=== PATIENT | male | born 1980 | race Caucasian/White ===

== ENCOUNTER → 2021-05-20 09:14 | Outpatient (CLI) | payer BC, SELFPAY ==
[2021-05-20 18:49] LABS: Add Manual Diff / Slide Review NO; Basophils Absolute Auto 0 /uL (0-100); Basophils Percent Auto 0.6 % (0-2); Eosinophils Absolute Auto 300 /uL (0-450); Hematocrit 42.2 % (41-53); Hemoglobin 14.4 g/dL (13.5-17.5); Lymphocytes Absolute Auto 1600 /uL (1100-4500); Lymphocytes Percent Auto 32.5 % (25-40); Mean Corpuscular HGB Conc 34.2 % (30-36); Mean Corpuscular Hemoglobin 30.9 PG (26-34); Mean Corpuscular Volume 90.4 fL (80-100); Monocytes Absolute Auto 500 /uL (0-900); Monocytes Percent Auto 9.5 % (3-14); Neutrophils Absolute Auto 2500 /uL (1500-7000); Neutrophils Percent Auto 51.4 % (50-75); Platelet Count 215 X10^3/uL (150-400); Red Blood Cell Count 4.66 X10^6/uL (4.5-5.9); Red Cell Distribution Width 13.4 % (11.6-14.8); White Blood Cell Count 4.9 X10^3/uL (4.5-11.0)
[2021-05-20 18:50] LABS: Alanine Aminotransferase 22 IU/L (<50); Albumin Globulin Ratio 1.6 (1.0-2.8); Alkaline Phosphatase 59 U/L (38-126); Aspartate Aminotransferase 32 IU/L (17-59); BUN Creatinine Ratio 17.6 (6-22); Bilirubin Total 0.6 mg/dL (0.2-1.3); Blood Urea Nitrogen 16 mg/dL (9-20); Carbon Dioxide 30 mmol/L (22-32); Chloride 104 mmol/L (98-107); Cholesterol 190 mg/dL (140-199); Estimated Glomerular Filt Rate > 60.0 mL/min (>60); Globulin 2.5 g/dL (1.7-4.1); Glucose 102 mg/dL (70-100); HDL Cholesterol 70 mg/dL (40-60); HEMOLYSIS < 15 (0-50); LDL Cholesterol Calculated 103 mg/dL (<100); Potassium 4.4 mmol/L (3.4-5.1); Sodium 139 mmol/L (137-145); Total Protein 6.5 g/dL (6.3-8.2); Triglycerides 86 mg/dL (35-150)
== END ==
PROVIDERS: PCP Family Medicine; Visit Provider Family Medicine
DX: Z00.00 Encounter for general adult medical examination without abnormal findings (principal); B35.9 Dermatophytosis, unspecified
CPT/HCPCS: 80053; 80061; 85025

== ENCOUNTER 2024-02-17 11:31 | Emergency (ER) | payer BC, SELFPAY ==
[2024-02-17 11:35] VITALS: BP 122/79; PULSE 70; RESP 15; TEMP 36.9; O2SAT 99; BMI 28.0
[2024-02-17 11:36] VITALS: PULSE 65; RESP 19; O2SAT 98
[2024-02-17 11:37] VITALS: BP 122/79; PULSE 64; RESP 19; O2SAT 98
--- NOTE | 2024-02-17 11:38 | ED.GENADULT ---
HPI - General Adult General Chief complaint: Chest Pain Stated complaint: chest pain, [facility] Time Seen by Provider: 02/17/24 11:38 History of Present Illness HPI narrative: 43-year-old gentleman, otherwise healthy, presents from [facility] complaining of the week of increasing chest pain over the central portion of his chest, worse with movement and deep breathing. He notes that he has been around a person that had significant upper respiratory infection that he himself has not felt ill. He notes he has had some low-grade temperatures over the last week. No cough. He notes that he has changes workout routine from going from the gym to doing yoga at home with some advanced postures that have him doing shoulder stands. He notes that he has not having any pain or problems during the exercise itself. He has not having orthopnea, abdominal pain, nausea, vomiting, diarrhea. He has never had similar findings and he does not have a history of cardiac disease Related Data Home Medications Medication Instructions Recorded Confirmed betamethasone valerate 0.1 % 1 applic topical BID PRN 03/26/21 03/26/21 topical cream Previous Rx's Medication Instructions Recorded ketoconazole 2 % topical cream 1 applic topical BID #15 grams 11/25/21 Allergies Allergy/AdvReac Type Severity Reaction Status Date / Time No Known Drug Allergies Allergy Verified 02/17/24 11:45 Review of Systems Review of Systems Narrative: Pertinent positive and negative findings as per HPI Patient History Medical History (Updated 02/17/24 @ 12:34 by Sweta Paredes MD) Skin rash (~2002) MRSA (methicillin resistant Staphylococcus aureus) (~2012) Tinea Well adult exam Family history of heart disease Family history of premature coronary heart disease Surgical History (Updated 05/28/21 @ 20:43 by Diana Miller) Anesthesia History of vascular surgery (~1995) S/P vasectomy Family History (Updated 05/28/21 @ 20:45 by Diana Miller) Father History of heart disease Grandmother History of heart disease Stroke Grandfather History of heart disease Stroke Social History Smoking Status: Never smoker Smoking Status: Never smoker Exam Initial Vital Signs Initial Vital Signs: General: Healthy appearing, in no acute distress. Able to give a complete and coherent history. Well-nourished well-developed HEENT: Moist mucous membranes, normal sclera with reactive pupils, Neck: No JVD, Respiratory: Lungs are clear to auscultation, no wheezing no rales no rhonchi. Full and symmetrical air movement. He does not have reproducible costochondral tenderness or pain reproduced with compression of the ribcage Cardiac: Regular rate and rhythm no murmurs no bruits Abdomen: Soft, nontender, good bowel tones, no flank pain Skin: Warm and dry, no rashes Neurologic: Grossly neurologically intact with no obvious asymmetries or abnormalities Extremities: No trauma, well perfused Psych: Cooperative, appropriate insight and affect Medical Decision Making MDM Narrative Medical decision making narrative: CC: A week of chest pain worse with deep breathing and movement Complicating co-morbidities: None Data collected from: patient Social determinants of health that may influence the patients condition: Patient lives on [facility] Differential considered: Acute coronary syndrome, STEMI, pleurisy, costochondritis, perichondritis, myocarditis, musculoskeletal pain Exam documented above, pertinent findings include: Patient is healthy appearing has no reproducible pain and exam is entirely benign otherwise Lab Test results independently reviewed as above. Pertinent findings: CBC is reassuring Chemistries are unremarkable Troponin is undetectable with a week of ongoing pain Lipase is unremarkable Independently reviewed EKG: EKG is notable for sinus rhythm at a rate of 65 with no acute ischemic changes Imaging studies independently reviewed: Chest x-ray shows no acute abnormalities Treatments: IV Toradol Discussion: 43-year-old gentleman presents with a week of chest pain worse with deep breathing and movement. No evidence of life-threatening abnormalities such as pneumonia, pericarditis, myocarditis, acute coronary syndrome, pneumothorax or other life-threatening abnormality. I suspect that this is inflammatory pain and whether that is inflammation in muscles, costochondritis or pleurisy is hard to tell. Fortunately treatment for all as the same. He did respond nicely to Toradol. At this point there was no indication for additional blood work, imaging or hospitalization. He is safe for discharge Discharge Plan Departure Patient Disposition: Home Clinical Impression: Acute costochondritis Instructions: DI for Costochondritis, DI for Pleurisy Activity Restrictions/Additional Instructions: Thank you for coming in today Your workup is very reassuring. I found no life-threatening abnormalities such as heart attack or heart attack like syndrome. Pneumonia, infection, collapsed lung. I suspect that your pain is from an inflammatory process and whether that is inflammation of the costochondral margins which would be costochondritis or around the lining of your lungs which would be pleurisy the treatment is still going to be the same. Using 400 mg of ibuprofen (2 jfsa-nom-thpiees pills) and 1 Tylenol every 6 hours can be very helpful in controlling pain. If you find that you are getting worse or develop any new symptoms, please feel free to return to the emergency department for further evaluation. Prescriptions: No Action ketoconazole 2 % cream 1 applic topical BID Qty: 15 0RF betamethasone valerate 0.1 % cream 1 applic topical BID PRN Rx Instructions: apply topically 2 times daily as needed for Itching/Pruritus or Rash. Referrals: Nacho Chavarria, [Primary Care Provider] - Stand Alone Forms: Patient Portal/API
--- NOTE | 2024-02-17 11:41 | DI.RAD.S_ITS ---
PROCEDURE: XR CHEST 1V INDICATIONS: chest pain TECHNIQUE: One view of the chest was acquired. COMPARISON: None. FINDINGS: Surgical changes and devices: None. Lungs and pleura: Lungs are clear. No pleural effusions or pneumothorax. Mediastinum: Mediastinal contours appear normal. Heart size is normal. Bones and chest wall: No suspicious bony lesions. Overlying soft tissues appear unremarkable. IMPRESSION: No acute cardiopulmonary abnormality is seen. Dictated by: Justo Rutherford M.D. on 02/17/2024 at 13:40 Approved by: Justo Rutherford M.D. on 02/17/2024 at 13:40
--- NOTE | 2024-02-17 11:41 | EKG_ITS ---
[address] [id number] Test Date: 2024-02-17 Pat Name: Karl Olguin Department: Room: Gender: Male Electrocardiogram Technician: RICKEY : 1980 Requested By: Order Number: [id number] Reading MD: Renato Avalos Measurements Intervals [place] Rate: 65 P: 38 WI: 152 QRS: 69 QRSD: 82 T: 36 QT: 372 QTc: 386 Interpretive Statements Normal sinus rhythm Electronically Signed On 02-17-2024 14:37:12 PDT by Renato Avalos
[2024-02-17 11:52] LABS: Add Manual Diff / Slide Review NO; Basophils Absolute Auto 100 /uL (0-100); Basophils Percent Auto 0.7 % (0-2); Eosinophils Absolute Auto 200 /uL (0-450); Eosinophils Percent Auto 2.4 % (2-4); Hematocrit 40.4 % (41-53); Hemoglobin 14.3 g/dL (13.5-17.5); Lymphocytes Absolute Auto 1900 /uL (1100-4500); Lymphocytes Percent Auto 20.8 % (25-40); Mean Corpuscular HGB Conc 35.4 % (30-36); Mean Corpuscular Hemoglobin 31.4 PG (26-34); Mean Corpuscular Volume 88.9 fL (80-100); Monocytes Absolute Auto 1000 /uL (0-900); Monocytes Percent Auto 11.5 % (3-14); Neutrophils Absolute Auto 5900 /uL (1500-7000); Neutrophils Percent Auto 64.6 % (50-75); Platelet Count 222 X10^3/uL (150-400); Red Blood Cell Count 4.54 X10^6/uL (4.5-5.9); Red Cell Distribution Width 12.4 % (11.6-14.8); White Blood Cell Count 9.1 X10^3/uL (4.5-11.0)
[2024-02-17 11:57] LABS: INR 1.1 (0.9-1.3); Prothrombin Time 13.1 SECONDS (9.4-12.5)
[2024-02-17 12:00] VITALS: BP 120/79; PULSE 69; RESP 23; O2SAT 99
[2024-02-17 12:00] LABS: PTT Partial Thromboplastin Tim 33 SECONDS (25.1-36.5)
[2024-02-17] MEDS: KETOROLAC 30 MG/ML VIAL 15 MG IV (12:01)
[2024-02-17 12:02] LABS: Alanine Aminotransferase 19 IU/L (<50); Albumin 4.2 g/dL (3.5-5.0); Albumin Globulin Ratio 1.5 (1.0-2.8); Alkaline Phosphatase 56 U/L (38-126); Aspartate Aminotransferase 24 IU/L (17-59); BUN Creatinine Ratio 14.9 (6-22); Blood Urea Nitrogen 11 mg/dL (9-20); Calcium 8.8 mg/dL (8.4-10.2); Carbon Dioxide 27 mmol/L (22-32); Chloride 104 mmol/L (98-107); Creatine Kinase 73 U/L (55-170); Estimated Glomerular Filt Rate > 60 mL/min (>60); Globulin 2.8 g/dL (1.7-4.1); Glucose 82 mg/dL (70-100); HEMOLYSIS < 15 (0-50); Lipase 56 U/L (23-300); Magnesium 2.2 mg/dL (1.6-2.3); Sodium 138 mmol/L (137-145)
[2024-02-17 12:13] LABS: NT-proBNP (BNP-Adult 18+) 53 pg/mL (<125); Troponin I < 0.012 ng/mL (0.01-0.034)
[2024-02-17 12:30] VITALS: BP 127/84; PULSE 68; RESP 19; O2SAT 98
--- NOTE | 2024-02-17 12:55 | PC.NURSE ---
CP; referred by [facility]. Family hx of heart issues. Pt states pain is middle; pointing around border of sternum. Pt states it is worse when taking a deep breath in.
== END 2024-02-17 12:57 | disposition home or self-care (01) ==
PROVIDERS: Emergency Provider Emergency Medicine; PCP Family Medicine
DX: M94.0 Chondrocostal junction syndrome [Tietze] (principal)
CPT/HCPCS: 36415; 71045; 80053; 82550; 83690; 83735; 83880; 84484; 85025; 85610; 85730; 93005; 96374; 99284; J1885